=== PATIENT | female | born 1985 | race Caucasian/White ===

== ENCOUNTER 2019-06-21 21:00 | Inpatient (IN) | payer OTHER ==
[2019-06-21] MEDS ORDERED: FLU Vacc QS2019-20(6MOS+)/PF 60 MCG/0.5 ML SYRINGE IM ONE (23:00)
[2019-06-21] MEDS ORDERED: Calcium Carbonate 500 MG Tab.Chew PO PRN (23:36)
[2019-06-21] MEDS ORDERED: Sodium Chloride 0.9% 10 ML Syringe FLUSH PRN (23:36)
[2019-06-21] MEDS ORDERED: Nalbuphine 10 MG/1 ML Vial IVPUSH PRN (23:36)
[2019-06-21] MEDS ORDERED: Lidocaine 1% 50 ML MDV INJECT ONE (23:36)
[2019-06-21] MEDS ORDERED: Ondansetron 4 MG/2 ML SDV IVPUSH PRN (23:36)
[2019-06-21] MEDS ORDERED: Oxytocin/Lactated Ringers 10 UNIT/1,000 ML BAG IV SCH ×2 (23:45)
[2019-06-21] MEDS: Lactated Ringers 1,000 ML IV SCH (23:57)
[2019-06-22] MEDS ORDERED: Bupivacaine 0.25% 10 ML SDV ONE
[2019-06-22] MEDS: Lactated Ringers 1,000 ML IV SCH ×2 (00:40→01:15)
[2019-06-22] MEDS ORDERED: ePHEDrine 50 MG/ML SDV IVPUSH PRN (00:41)
[2019-06-22] MEDS ORDERED: fentaNYL 100 MCG/2 ML SDV EPIDUR PRN (00:41)
[2019-06-22] MEDS ORDERED: Ondansetron 4 MG/2 ML SDV IVPUSH PRN (00:41)
[2019-06-22] MEDS ORDERED: fentaNYL/Bupivacaine/NS 2 MCG-0.125% 250 ML EPIDUR PRN (00:41)
--- NOTE | 2019-06-22 00:43 | PCM.PREANE ---
Preanesthetic Assessment - Anesthesia/Transfusion/Family Hx Anesthesia History: Prior Anesthesia Without Reaction (epidurals and spinal only ) Family History of Anesthesia Reaction: No Transfusion History: No Prior Transfusion(s) Intubation History: Unknown - Review of Systems General: No Symptoms Pulmonary: No Symptoms (Asthma/smoker 1ppd times 20 years, October 2018 last used Methamphetamines) Cardiovascular: No Symptoms Gastrointestinal: No Symptoms, Nausea Neurological: No Symptoms (bulging disk in L4-L5 chronic back pain At 2-3.) Other: Reports: None, Anxiety (PTSD) - Physical Assessment NPO Status Date: 06/21/19 Vital Signs: Last Vital Signs Temp 37.1 C 06/21/19 21:10 Pulse 74 06/21/19 21:10 Resp 18 06/21/19 21:10 BP 129/77 06/21/19 21:10 Pulse Ox 96 06/21/19 21:10 Height: 1.75 m Weight: 99.7 kg ASA Class: 2 Mental Status: Alert & Oriented x3 Airway Class: Mallampati = 2 Dentition: Reports: Normal Dentition, Caries Thyro-Mental Finger Breadths: 3 Mouth Opening Finger Breadths: 3 ROM/Head Extension: Full Lungs: Clear to Auscultation, Normal Respiratory Effort Cardiovascular: Regular Rate, Regular Rhythm, No Murmurs - Lab Values: Laboratory Last Values WBC 6.83 K/mm3 (3.98-10.04) 06/21/19 23:50 RBC 3.92 M/mm3 (3.98-5.22) L 06/21/19 23:50 Hgb 10.6 gm/dl (11.2-15.7) L 06/21/19 23:50 Hct 32.9 % (34.1-44.9) L 06/21/19 23:50 MCV 83.9 fl (79.4-94.8) 06/21/19 23:50 MCH 27.0 pg (25.6-32.2) 06/21/19 23:50 MCHC 32.2 g/dl (32.2-35.5) 06/21/19 23:50 RDW Std Deviation 40.9 fL (36.4-46.3) 06/21/19 23:50 Plt Count 295 K/mm3 (182-369) 06/21/19 23:50 MPV 10.7 fl (9.4-12.3) 06/21/19 23:50 Neut % (Auto) 72.4 % (34.0-71.1) H 06/21/19 23:50 Lymph % (Auto) 18.7 % (19.3-51.7) L 06/21/19 23:50 [place] % (Auto) 7.5 % (4.7-12.5) 06/21/19 23:50 Eos % (Auto) 1.2 (0.7-5.8) 06/21/19 23:50 Baso % (Auto) 0.1 % (0.1-1.2) 06/21/19 23:50 Neut # (Auto) 4.94 K/mm3 (1.56-6.13) 06/21/19 23:50 Lymph # (Auto) 1.28 K/mm3 (1.18-3.74) 06/21/19 23:50 [place] # (Auto) 0.51 K/mm3 (0.24-0.36) H 06/21/19 23:50 Eos # (Auto) 0.08 K/mm3 (0.04-0.36) 06/21/19 23:50 Baso # (Auto) 0.01 K/mm3 (0.01-0.08) 06/21/19 23:50 Urine Color Yellow (Yellow) 06/21/19 21:10 Urine Appearance Clear (Clear) 06/21/19 21:10 Urine pH 7.0 (5.0-8.0) 06/21/19 21:10 Ur Specific [place] 1.015 (1.005-1.030) 06/21/19 21:10 Urine Protein Negative (Negative) 06/21/19 21:10 Urine Glucose (UA) Negative (Negative) 06/21/19 21:10 Urine Ketones Negative (Negative) 06/21/19 21:10 Urine Occult Blood Negative (Negative) 06/21/19 21:10 Urine Nitrite Negative (Negative) 06/21/19 21:10 Urine Bilirubin Negative (Negative) 06/21/19 21:10 Urine Urobilinogen 0.2 (0.2-1.0) 06/21/19 21:10 Ur Leukocyte Esterase Negative (Negative) 06/21/19 21:10 Urine RBC 0-5 /hpf (0-5) 06/21/19 21:10 Urine WBC 0-5 /hpf (0-5) 06/21/19 21:10 Ur Squamous Epith Cells 5-10 /hpf (0-5) H 06/21/19 21:10 Urine Bacteria Few /hpf (FEW) 06/21/19 21:10 Urine Mucus Not seen /hpf (FEW) 06/21/19 21:10 Urine Opiates Screen Negative (SEMKXT=046) 06/21/19 21:20 Ur Buprenorphine Scrn Negative (CUTOFF=10) 06/21/19 21:20 Ur Oxycodone Screen Negative (ETU5GI=992) 06/21/19 21:20 Urine Methadone Screen Negative (PYLEZC=818) 06/21/19 21:20 Ur Propoxyphene Screen Negative (NNEGDT=847) 06/21/19 21:20 Ur Barbiturates Screen Negative (GAEZRZ=810) 06/21/19 21:20 Ur Tricyclics Screen Negative (BLDBQL=584) 06/21/19 21:20 Ur Phencyclidine Scrn Negative (CUTOFF=25) 06/21/19 21:20 Ur Amphetamine Screen Negative (FLFHHK=605) 06/21/19 21:20 U Methamphetamines Scrn Negative (GULCZQ=088) 06/21/19 21:20 U Benzodiazepines Scrn Negative (RACBEI=965) 06/21/19 21:20 U Cocaine Metab Screen Negative (MDOEPA=941) 06/21/19 21:20 U Marijuana (THC) Screen Negative (CUTOFF=50) 06/21/19 21:20 MRSA (PCR) Negative 06/21/19 21:20 Above labs reviewed and noted and within acceptable ranges to proceed with epidural. - Allergies Allergies/Adverse Reactions: Allergies Allergy/AdvReac Type Severity Reaction Status Date / Time No Known Allergies Allergy Verified 06/21/19 22:30 - Anesthesia Plan Pre-Op Medication Ordered: None - Acknowledgements Anesthesia Type Planned: Epidural Pt an Appropriate Candidate for the Planned Anesthesia: Yes Alternatives and Risks of Anesthesia Discussed w Pt/Guardian: Yes Pt/Guardian Understands and Agrees with Anesthesia Plan: Yes PreAnesthesia Questionnaire - HOME MEDS Home Medications: Home Meds Acetaminophen [Tylenol Extra Strength] 500 mg PO Q6HR PRN 06/21/19 [History] Albuterol Sulfate [Albuterol Sulfate Hfa] 18 gm IH Q4HR PRN 06/21/19 [History] Magnesium Oxide [Magnesium] 400 mg PO BID 06/21/19 [History] No122/Iron/Folic Acid [ Multi Tablet] 1 each PO DAILY 06/21/19 [History] Promethazine [Phenergan] 25 mg PO Q6H PRN 06/21/19 [History] diphenhydrAMINE [Benadryl] 25 mg PO BEDTIME 06/21/19 [History] - CURRENT (IN HOUSE) MEDS Current Meds: Current Medications Calcium Carbonate/Glycine (Tums) 1,000 mg PO Q2H PRN PRN Reason: Indigestion Lactated Ringer's (Ringers, Lactated) 1,000 mls @ 100 mls/hr IV ASDIRECTED EVAN Last Admin: 06/22/19 00:40 Dose: 999 mls/hr Oxytocin/Lactated Ringer's (Pitocin In Lr 10 Units/1,000 Ml) 10 unit in 1,000 mls @ 12 mls/hr IV TITRATE EVAN; Protocol Oxytocin/Lactated Ringer's (Pitocin In Lr 10 Units/1,000 Ml) 10 unit in 1,000 mls @ 500 mls/hr IV .CONTINUOUS EVAN Nalbuphine HCl (Nubain) 10 mg IVPUSH Q2H PRN PRN Reason: Pain Ondansetron HCl (Zofran) 4 mg IVPUSH Q4H PRN PRN Reason: Nausea/Vomiting Sodium Chloride (Saline Flush) 10 ml FLUSH ASDIRECTED PRN PRN Reason: Keep Vein Open Discontinued Medications Influenza Virus Vaccine (Pharmacy To Dose - Influenza Vaccine) 1 each IM ONETIME ONE Stop: 06/21/19 22:52 Influenza Virus Vaccine (Fluzone Quad [id number] Syringe) 60 mcg IM .ONCE ONE Stop: 06/21/19 23:01 Lidocaine HCl (Xylocaine 1%) 20 ml INJECT ONETIME ONE Stop: 06/21/19 23:37
[2019-06-22] MEDS ORDERED: diphenhydrAMINE 50 MG/ML SDV ONE (03:44)
[2019-06-22] MEDS: diphenhydrAMINE 50 MG/ML SDV IVPUSH PRN ×2 (03:47→10:10)
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
--- NOTE | 2019-06-22 12:32 | PCM.SN ---
- Free Text/Narrative Note: Stage 1 - Patient presented in active labor at 37w6. Progressed to complete with pitocin augmentation and epidural anesthesia. Overall reassuring heart tones. Stage II - of viable female, weight 3940 (8#11oz), 8/9 APGARS at 1211. Head delivered in controlled manner over intact perineum. Body and shoulders followed with mild shoulder dystocia which resolved with Reynold. Placed on maternal abdomen. Pitocin initiated. Vigorous cry. To warmer. Stage III - of intact placenta. 3vc. Initially boggy uterus with EBL of 600. Methergine given in addition. Bleeding improved and fundus firm. EBL 650. Cord blood and cord segment obtained.
[2019-06-22] MEDS ORDERED: Methylergonovine 0.2 MG/1 ML Amp IM STA (12:37)
--- NOTE | 2019-06-22 14:26 | PCM48HPAN ---
Post Anesthesia Note - EVALUATION WITHIN 48HRS OF ANESTHETIC Vital Signs in Normal Range: Yes Patient Participated in Evaluation: Yes Respiratory Function Stable: Yes Airway Patent: Yes Cardiovascular Function Stable: Yes Hydration Status Stable: Yes Pain Control Satisfactory: Yes Nausea and Vomiting Control Satisfactory: Yes Mental Status Recovered: Yes Vital Signs: Last Vital Signs Temp 37.1 C 06/21/19 21:10 Pulse 74 06/22/19 04:30 Resp 18 06/21/19 21:10 BP 110/55 L 06/22/19 04:30 Pulse Ox 96 06/21/19 21:10
[2019-06-22] MEDS ORDERED: Acetaminophen 325 MG Tab PO PRN (15:47)
[2019-06-22] MEDS ORDERED: Ibuprofen 600 MG Tab PO PRN (15:47)
[2019-06-22] MEDS ORDERED: Witch Hazel Medicated Pads 40/Jar TOP PRN (15:47)
[2019-06-22] MEDS ORDERED: Docusate Sodium 100 MG Cap PO PRN (15:47)
[2019-06-22] MEDS ORDERED: Benzocaine/Menthol 20%-0.5% Spray 56 GM Canister TOP PRN (15:47)
[2019-06-22] MEDS ORDERED: Zolpidem 10 MG Tab PO SCH (22:45)
[2019-06-22] MEDS ORDERED: Zolpidem 5 MG Tab PO SCH (23:00)
--- NOTE | 2019-06-23 09:30 | PCM.DCSUM1 ---
Discharge Summary - Hospital Course Diagnosis: Stroke: No - Discharge Data Discharge Date: 06/23/19 Discharge Disposition: Home, Self-Care 01 Condition: Good - Referral to Home Health Primary Care Physician: Adela Ackerman MD - Patient Summary/Data Hospital Course: Admitted in labor, of viable infant. Baby with respiratory issues. - Patient Instructions Diet: Usual Diet as Tolerated Activity: No Strenuous Activities Driving: May Drive Today Showering/Bathing: May Shower Notify Provider of: Fever, Increased Pain, Swelling and Redness, Drainage, Nausea and/or Vomiting - Discharge Plan *PRESCRIPTION DRUG MONITORING PROGRAM REVIEWED*: No *COPY OF PRESCRIPTION DRUG MONITORING REPORT IN PATIENT TWYLA: No Home Medications: Home Meds Acetaminophen [Tylenol Extra Strength] 500 mg PO Q6HR PRN 06/21/19 [History] Albuterol Sulfate [Albuterol Sulfate Hfa] 18 gm IH Q4HR PRN 06/21/19 [History] Magnesium Oxide [Magnesium] 400 mg PO BID 06/21/19 [History] No122/Iron/Folic Acid [ Multi Tablet] 1 each PO DAILY 06/21/19 [History] Promethazine [Phenergan] 25 mg PO Q6H PRN 06/21/19 [History] diphenhydrAMINE [Benadryl] 25 mg PO BEDTIME 06/21/19 [History] Referrals: Anyi Hammond MD [Physician] - (1 week) - Discharge Summary/Plan Comment DC Time >30 min.: No - General Info Date of Service: 06/23/19 Functional Status: Reports: Pain Controlled - Review of Systems General: Reports: No Symptoms HEENT: Reports: No Symptoms Pulmonary: Reports: No Symptoms Cardiovascular: Reports: No Symptoms Gastrointestinal: Reports: No Symptoms Genitourinary: Reports: No Symptoms Musculoskeletal: Reports: No Symptoms Skin: Reports: No Symptoms Neurological: Reports: No Symptoms Psychiatric: Reports: No Symptoms - Patient Data Vitals - Most Recent: Last Vital Signs Temp 37.1 C 06/21/19 21:10 Pulse 74 06/22/19 04:30 Resp 18 06/21/19 21:10 BP 110/55 L 06/22/19 04:30 Pulse Ox 96 06/21/19 21:10 Weight - Most Recent: 99.7 kg I&O - Last 24 hours: Intake & Output 12/15/19 12/16/19 12/16/19 22:59 06:59 14:59 Intake Total 480 Balance 480 MIGDALIA Results - Last 24 hrs: Microbiology 06/21/19 21:20 MRSA Culture - Final Nasal/Axilla/Groin NO MRSA ISOLATED Med Orders - Current: Current Medications Acetaminophen (Tylenol) 650 mg PO Q6H PRN PRN Reason: mild pain or fever Benzocaine/Menthol (Dermoplast Pain Relief [place]) 0 gm TOP ASDIRECTED PRN PRN Reason: Perineal Comfort Measure Docusate Sodium (Colace) 100 mg PO BID PRN PRN Reason: Constipation Ibuprofen (Motrin) 600 mg PO Q6H PRN PRN Reason: Mild pain or fever Witch Deedee (Tucks) 1 pad TOP ASDIRECTED PRN PRN Reason: Pain Zolpidem Tartrate (Ambien) 10 mg PO BEDTIME EVAN Last Admin: 06/23/19 05:43 Dose: Not Given Discontinued Medications Calcium Carbonate/Glycine (Tums) 1,000 mg PO Q2H PRN PRN Reason: Indigestion Diphenhydramine HCl (Benadryl) 25 mg IVPUSH Q6H PRN PRN Reason: Itching Last Admin: 06/22/19 10:10 Dose: 25 mg Diphenhydramine HCl (Benadryl) Confirm Administered Dose 50 mg .ROUTE .STK-MED ONE Stop: 06/22/19 03:45 Last Admin: 06/22/19 04:19 Dose: Not Given Ephedrine Sulfate (Ephedrine Sulfate) 5 mg IVPUSH ASDIRECTED PRN PRN Reason: Hypotension Fentanyl (Sublimaze) 100 mcg EPIDUR Q3H PRN PRN Reason: Pain Last Admin: 06/22/19 01:15 Dose: 100 mcg Fentanyl/Bupivacaine HCl (Fentanyl/Bupivacaine/Ns 2 Mcg-0.125% 250 Ml) 0 ml EPIDUR CONTINUOUS PRN PRN Reason: Pain Last Admin: 06/22/19 01:15 Dose: 250 ml Lactated Ringer's (Ringers, Lactated) 1,000 mls @ 100 mls/hr IV ASDIRECTED EVAN Last Infusion: 06/22/19 01:30 Dose: 100 mls/hr Oxytocin/Lactated Ringer's (Pitocin In Lr 10 Units/1,000 Ml) 10 unit in 1,000 mls @ 12 mls/hr IV TITRATE EVAN; Protocol Last Titration: 06/22/19 10:10 Dose: 16 munits/min, 96 mls/hr Oxytocin/Lactated Ringer's (Pitocin In Lr 10 Units/1,000 Ml) 10 unit in 1,000 mls @ 500 mls/hr IV .CONTINUOUS EVAN Last Admin: 06/22/19 13:03 Dose: 500 mls/hr Influenza Virus Vaccine (Pharmacy To Dose - Influenza Vaccine) 1 each IM ONETIME ONE Stop: 06/21/19 22:52 Influenza Virus Vaccine (Fluzone Quad 1371-7154 Syringe) 60 mcg IM .ONCE ONE Stop: 06/21/19 23:01 Last Admin: 06/22/19 01:50 Dose: Not Given Lidocaine HCl (Xylocaine 1%) 20 ml INJECT ONETIME ONE Stop: 06/21/19 23:37 Last Admin: 06/22/19 15:23 Dose: Not Given Methylergonovine Maleate (Methergine) 0.2 mg IM NOW STA Stop: 06/22/19 12:38 Last Admin: 06/22/19 12:43 Dose: 0.2 mg Nalbuphine HCl (Nubain) 10 mg IVPUSH Q2H PRN PRN Reason: Pain Ondansetron HCl (Zofran) 4 mg IVPUSH Q4H PRN PRN Reason: Nausea/Vomiting Ondansetron HCl (Zofran) 4 mg IVPUSH ONETIME PRN PRN Reason: Nausea/Vomiting Sodium Chloride (Saline Flush) 10 ml FLUSH ASDIRECTED PRN PRN Reason: Keep Vein Open Zolpidem Tartrate (Ambien) 10 mg PO BEDTIME EVAN Zolpidem Tartrate (Ambien) 10 mg PO BEDTIME EVAN Last Admin: 06/23/19 01:15 Dose: Not Given - Exam General: Reports: Alert, Oriented HEENT: Reports: Pupils Equal, Pupils Reactive, EOMI, Mucous Membr. Moist/[place] Neck: Reports: Supple Lungs: Reports: Clear to Auscultation, Normal Respiratory Effort Cardiovascular: Reports: Regular Rate, Regular Rhythm GI/Abdominal Exam: Normal Bowel Sounds, Soft, Non-Tender, No Organomegaly, No Distention, No Abnormal Bruit, No Mass, Pelvis Stable Rectal (Female) Exam: Normal Exam, Normal Rectal Tone Back Exam: Reports: Normal Inspection, Full Range of Motion Extremities: Normal Inspection, Normal Range of Motion, Non-Tender, No Pedal Edema, Normal Capillary Refill Skin: Reports: Warm, Dry, Intact Wound/Incisions: Reports: Healing Well Neurological: Reports: No New Focal Deficit Psy/Mental Status: Reports: Alert, Normal Affect, Normal Mood
[2019-06-23] MEDS ORDERED: Zolpidem 10 MG Tab PO SCH (21:00)
== END 2019-06-23 09:40 | disposition home or self-care (01) | DRG 807 ==
LOC: JD.OBCHECK 21:00 → EEVIPCON 23:36 → JD.OB 23:36 → OBSVTOIN 06-22 12:11 → JD.OB 06-22 12:12
PROVIDERS: ADMIT Obstetrics & Gynecology; ATTEND Obstetrics & Gynecology
PROC: 10E0XZZ Delivery of Products of Conception, External Approach (ICD-10-PCS; principal; 2019-06-22)
DX: O99.52 Diseases of the respiratory system complicating childbirth (principal); O66.0 Obstructed labor due to shoulder dystocia; Z37.0 Single live birth; Z3A.37 37 weeks gestation of pregnancy; Z87.891 Personal history of nicotine dependence
CPT/HCPCS: 01967; 36415; 51702; 59025; 59409; 80306; 81001; 85025; 86592; 87070; 87641; J1200; J2210; J2590; J3010; J3490; J7120